=== PATIENT | male | born 1990 | race Caucasian/White ===

== ENCOUNTER 2016-12-08 14:14 | Inpatient (IN) | payer OTHER ==
[~2016-12-08] VITALS: Ht 175.3 cm; Wt 80.3 kg
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
--- NOTE | ~2016-12-08 | PN ---
Unit #: [id number] #: [id number] Patient: CONRAD GERARD [id number] [facility] [address] [place] [address] [id number] I MR#: [id number] NAME: CONRAD GERARD ROOM: P211 Age: 26 Sex: M Admission Date: 12/08/2016 : 1990 Attending Physician: Costa Chery M.D. Admitting Physician: Costa Chery M.D. Primary Care Physician: [facility] SPANGLER NOTES DATE OF SERVICE: 12/11/2016 SUBJECTIVE Mr. Gerard is a 26-year-old white male, who was seen today and chart was reviewed and case was discussed with the staff. He has been anxious, withdrawn, and rather seclusive to himself and has not been voicing much concerns neither has been able to carry on much conversation. However, he has been taking medications and tolerating them fairly well with no reported side effects. MENTAL STATUS EXAMINATION Young white male who was casually dressed with fair personal hygiene, appears to be in no acute distress or discomfort. He was awake and alert on interaction with intact orientation. His mood was anxious with a congruent affect. He denies any suicidal or homicidal ideation. His insight and judgment remain slightly impaired. TREATMENT PLAN 1. We will continue on his current medications and treatment protocol. We will monitor his response to medications and make further adjustments as needed. 2. We will continue to follow up. Dictated by... Matt Grewal/cem TD: 12/13/2016 03:31 JOB #: [id number] [facility] PROGRESS NOTES Page 1 of 1 X Costa Chery MD X PROGRESS NOTE
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
--- NOTE | ~2016-12-08 | PN ---
Unit #: [id number] #: [id number] Patient: CONRAD GERARD [id number] [facility] [address] [place] [address] [id number] I MR#: [id number] NAME: CONRAD GERARD ROOM: P211 Age: 26 Sex: M Admission Date: 12/08/2016 : 1990 Attending Physician: Costa Chery M.D. Admitting Physician: Costa Chery M.D. Primary Care Physician: [facility] Brionna SPANGLER NOTES DATE OF SERVICE: 12/10/2016 SUBJECTIVE Mr. Gerard is a 26-year-old white male, who was seen today and chart was reviewed, and case was discussed with the staff. He has been anxious, withdrawn, and rather seclusive to himself, though has not shown any agitation or aggression and has been cooperative with treatment recommendation and has been taking the medications and tolerating them fairly well. MENTAL STATUS EXAMINATION Young white male who was causally dressed with fair personal hygiene, appears to be in no acute distress or discomfort. He was awake and alert with intact orientation. His mood was anxious with a congruent affect. He denies any suicidal or homicidal ideations. His insight and judgment remain slightly impaired. TREATMENT PLAN 1. We will continue him on his current treatment protocol. We will monitor his response to the medication and make further adjustments as needed. 2. We will continue to follow up. Dictated by... Matt Grewal/hieul TD: 12/12/2016 05:22 JOB #: [id number] [facility] PROGRESS NOTES Page 1 of 1 X Costa Chery MD PROGRESS NOTE
--- NOTE | ~2016-12-08 | DS ---
Unit #: [id number] #: [id number] [facility]: [facility] [id number] [facility] [address] [place] [address] [id number] I MR#: [id number] NAME: CONRAD MON ROOM: [facility] Age: 26 Sex: M Admission Date: 12/08/2016 : 1990 Discharge Date: 12/12/2016 Attending Physician: Costa Chery M.D. Primary Care Physician: [facility] DISCHARGE SUMMARY IDENTIFYING DATA Mr. Mon is a 26-year-old single white male, who is a resident of [place], [place], and was brought to the hospital accompanied by police. DISCHARGE DIAGNOSES Psychiatric: Bipolar disorder, most recent episode depressed, recurrent, moderate, with psychosis and psychostimulant dependence, moderate. Medical: None. Stressors: Mild psychosocial stressors. HISTORY OF PRESENT ILLNESS Please see initial psychiatric evaluation for details. PAST PSYCHIATRIC HISTORY Please see initial psychiatric evaluation for details. PAST MEDICAL HISTORY Please see initial psychiatric evaluation for details. HOSPITAL COURSE The [facility] and was oriented to the hospital environment. Routine p.r.n. medications were initiated, and he was started on his home medications and medications were adjusted and Risperdal was started as a mood stabilizer and antipsychotic and he was closely monitored. He was initially seen to be anxious, withdrawn, and rather seclusive to himself, though was polite and pleasant. No agitation or aggression was noted. He was taking the medications regularly and was tolerating them fairly well and was able to show a decent and therapeutic response, and as such, it was decided that he will be discharged home and will continue treatment on an outpatient basis. DISCHARGE MEDICATIONS Risperdal 1 mg b.i.d. for psychosis. DISCHARGE CONDITION Stable. PROGNOSIS Fair. Dictated by... Unit #: [id number] #: [id number] Patient: CONRAD MON Costa Chery M.D. IAA/modl TD: 12/12/2016 19:44 JOB #: [id number] DISCHARGE SUMMARY Page 1 of 1 X Costa Chery MD DISCHARGE SUMMARY
[~2016-12-08 14:14] MED LIST: BACTRIM DS TABL1 TA1 PO; CIPRO PO; CIPRO XR 500 M500 MG PO; EC-NAPROSYN500 MG PO; FLEXERIL10 MG PO; HYDROCODON-ACE1 EAC5 PO; KEFLEX500 MG; KEFLEX500 MG PO; VOLTAREN75 MG PO
[2016-12-09 13:18] LABS: BASOPHIL% 0.3 % (0-2.5); EOSINOPHIL# 0.1 X10e3 (0-0.7); EOSINOPHIL% 1.2 % (0.0-7.0); HEMOGLOBIN 13.4 gm/dL (13.0-16.0); LYMPHOCYTE% 26.4 % (17.0-45.0); MEAN CELL VOLUME 88.8 FL (83-96); MEAN CORPUSCULAR HEMOGLOBIN 30.5 PG (28-34); MEAN CORPUSCULAR HGB CONC 34.3 g/dL (30-36); MEAN PLATELET VOLUME 10.2 FL (6.5-11.5); MONOCYTE# 0.6 X10e3 (0-1.0); MONOCYTE% 7.2 % (3.0-12.0); NEUTROPHIL% 64.9 % (40-75); PLATELET COUNT 207 X10e3 (140-420); RED BLOOD COUNT 4.39 X10e (3.90-5.60); RED CELL DISTRIBUTION WIDTH 14.5 % (11.0-15.5); WHITE BLOOD COUNT 7.8 X10e3 (4.0-10.5)
[2016-12-09 13:35] LABS: ALBUMIN SERUM 3.8 g/dL (3.5-5.0); BILIRUBIN,TOTAL 0.5 mg/dL (0.2-2.0); CALCIUM SERUM 9.4 mg/dL (8.4-10.2); CREATININE SERUM 0.6 mg/dL (0.6-1.4); GLOM FILT RATE Estimated 139.8 mL/min (>60); POTASSIUM 4.3 mmol/L (3.5-5.1); PROTEIN TOTAL SERUM 6.5 g/dL (6.0-8.3)
[2016-12-09 13:56] LABS: DIFF IND NO
[2016-12-11 10:28] LABS: URINE APPEARANCE CLEAR; URINE BILIRUBIN NEG (NEG); URINE BLOOD NEG (NEG); URINE COLOR YELLOW; URINE GLUCOSE NEG (NEG); URINE KETONE NEG (NEG); URINE LEUKOCYTE ESTERASE 2+ (NEG); URINE NITRATE NEG (NEG); URINE PROTEIN TRACE (NEG); URINE SPECIFIC GRAVITY 1.017 (1.003-1.035); URINE UROBILINOGEN 0.2 MG/DL (NEG)
[2016-12-11 10:35] LABS: URBCS1 AUWI 0-2 /[HPF] (0-2); URINE BACTERIA AUWI NEG (NEGATIVE); URINE SQUAMOUS EPITHELIAL CELL OCC /[HPF]
[2016-12-11 11:07] LABS: URINE MUCUS PRESENT
[2016-12-11 11:08] LABS: UWBCS1 AUWI 25-50 (0-5)
[2016-12-11 11:09] LABS: URINE SPERM PRESENT
[2016-12-11 11:12] LABS: AMPHETAMINE NEG (NEG); BARBITURATES NEG (NEG); BENZODIAZEPINES NEG (NEG); COCAINE NEG (NEG); MARIJUANA NEG (NEG); OPIATES NEG (NEG); TRICYCLIC ANTIDEPRESSANTS NEG (NEG); U METHADONE NEG (NEG)
== END 2016-12-12 10:25 | DRG 885 ==
LOC: P2S 18:04
PROVIDERS: Psychiatry & Neurology Psychiatry
DX: F33.1 Major depressive disorder, recurrent, moderate (principal); F11.20 Opioid dependence, uncomplicated; F15.20 Other stimulant dependence, uncomplicated; J45.909 Unspecified asthma, uncomplicated; F10.10 Alcohol abuse, uncomplicated
CPT/HCPCS: 80053; 80307; 81003; 85025; 87070; 87075; 87077; 87186; 87205

== ENCOUNTER 2016-12-12 19:38 | Inpatient (IN) | payer OTHER ==
[~2016-12-12] VITALS: Ht 177.8 cm; Wt 80.3 kg
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
--- NOTE | ~2016-12-12 | DS ---
Unit #: [id number] #: [id number] Patient: CONRAD MON [id number] [facility] [place] [address] [id number] I MR#: [id number] NAME: CONRAD MON ROOM: [facility] Age: 26 Sex: M Admission Date: 12/13/2016 : 1990 Discharge Date: 12/14/2016 Attending Physician: Costa Chery M.D. Primary Care Physician: [facility] DISCHARGE SUMMARY IDENTIFYING DATA Mr. Mon is a 26-year-old single white male, who was just discharged from my care and was self-referred back to the hospital. DISCHARGE DIAGNOSES Psychiatric: Major depressive disorder, recurrent, moderate, without psychotic features; opioid dependence, moderate; methamphetamine dependence, moderate; and alcohol abuse, moderate. Medical: Asthma. Stressors: Mild psychosocial stressors. HISTORY OF PRESENT ILLNESS Please see initial psychiatric evaluation for details. PAST PSYCHIATRIC HISTORY Please see initial psychiatric evaluation for details. PAST MEDICAL HISTORY Please see initial psychiatric evaluation for details. HOSPITAL COURSE The patient was admitted to the adult psychiatric unit at [facility] and was oriented to the hospital environment. Routine p.r.n. medications were initiated, and he was started back on his home medications. However, medications were adjusted and Risperdal was increased to 1 mg in the morning and 2 mg at bedtime as part of his bipolar, and Celexa as an antidepressant was also added. He was taking the medications regularly and was tolerating them fairly well and was denying any further suicidal ideations, intent, or plan, and as such, it was decided that he will be discharged home and will continue treatment on an outpatient basis. DISCHARGE MEDICATIONS Risperdal 1 mg in the morning and 2 mg at bedtime. DISCHARGE CONDITION Stable. PROGNOSIS Fair. Dictated by... Costa Chery M.D. Unit #: [id number] #: [id number] Patient: CONRAD MON IAA/modl TD: 12/14/2016 12:38 JOB #: [id number] DISCHARGE SUMMARY Page 1 of 1 X Costa Chery MD X DISCHARGE SUMMARY
--- NOTE | ~2016-12-12 | HP ---
Unit #: [id number] #: [id number] Patient: CONRAD GERARD [id number] [facility] [address] [place] [address] [id number] MR#: [id number] NAME: CONRAD GERARD ROOM: P203 Age: 26 Sex: M Admission Date: 12/13/2016 : 1990 Attending Physician: Costa Chery M.D. Admitting Physician: Costa Chery M.D. Primary Care Physician: [facility] [place] HISTORY AND PHYSICAL HISTORY OF PRESENT ILLNESS Conrad is a 26 year old admitted to [address] [place] [address] with depression verbalizing wanting to hurt himself. 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 He denies any currently. PAST SURGICAL HISTORY Left eye. ALLERGIES No known drug allergies. SOCIAL HISTORY Smokes one-half pack per day. Denies alcohol. Has a history of illicit substance abuse to include IV heroin. He denies anything currently. FAMILY HISTORY Medically noncontributory. REVIEW OF SYSTEMS CONSTITUTIONAL: No fever or chills. HEENT: Denies any sore throat, ear pain or runny nose. CARDIOVASCULAR: Denies chest pain, irregular heart rhythm or palpitations. CHEST: Denies shortness of breath or cough. No hemoptysis. GASTROINTESTINAL: Denies nausea, vomiting, diarrhea or chronic constipation. ENDOCRINE: Denies history of increased thirst or urination. No recent significant weight loss or gain. GENITOURINARY: Denies dysuria, frequency, or hematuria. SKIN: Denies any rashes. He does report an abscess along his right heel. HEMATOLOGIC: Denies history of increased bleeding or bruising. MUSCULOSKELETAL: Denies any hot, swollen joints. No generalized muscle pain. NEUROLOGIC: Denies problems with vision or speech. No frequent, severe headaches. No numbness, tingling or weakness in any extremities. Denies loss of bladder or bowel control. CURRENT MEDICATIONS 1. Risperdal 1 mg q.a.m., 2 mg q.h.s. Unit #: [id number] #: [id number] Patient: CONRAD GERARD 2. Celexa 20 mg q day 3. Milk of Magnesia p.r.n. 4. Maalox p.r.n. 5. Tylenol p.r.n. PHYSICAL EXAMINATION GENERAL: Alert, well-nourished, in no apparent distress. VITAL SIGNS: Blood pressure 144/88, heart rate 80, respirations 16, temperature 98.6. WEIGHT: 177. HEIGHT: 5 foot 10 inches. SKIN: Warm and dry without rash. He has a large partially healed area along his right heel. There is small amounts of purulent discharge noted. HEENT: Normocephalic. TMs not viewed. Oral and nasal passages clear. Conjunctivae clear. Pupils equal, round and reactive to light and accommodation. Extraocular movements intact. NECK: Supple without lymphadenopathy or thyromegaly. HEART: Regular rate and rhythm without murmur. LUNGS: Clear. ABDOMEN: Soft, nontender. : Not done. EXTREMITIES: No evidence of cyanosis, clubbing or edema. Moves all extremities without focal deficit. NEUROLOGICAL: Grossly within normal limits. Cranial Nerves: II: Visual lopez are intact. III, IV AND : Extraocular movements are intact. Pupils are equal, round and reactive to light. V: Facial sensation is grossly normal. VII: Facial movements and expression are normal. VIII: Auditory acuity grossly intact. IX, X: Uvula is midline. Phonation is normal. XI: Patient shrugs shoulders and turns head normally. XII: Tongue protrudes in the midline. Sensory and Motor Function: Sensory and motor sensation is grossly normal. Motor: moves all extremities well. Coordination: Gait is normal. Deep Tendon Reflexes: Intact. IMPRESSION 1. Psychiatric admission. 2. Abscess right heel. 3. Liver enzymes elevated his admission. RECOMMENDATIONS PSYCHIATRIC: Per psychiatrist. MEDICAL: 1. I see no contraindications to participating in facility's activities. 2. Screen for hepatitis C. 3. Start Cleocin 300 mg 1 p.o. t.i.d. times 7 days. MEDICAL PROGNOSIS Good. MEDICAL CONDITION Stable. Unit #: [id number] #: [id number] Patient: CONRAD GERARD Dictated by... Latisha Hadley P.A.-C. for Matt Hoover/teri TD: 12/14/2016 05:27 JOB #: [id number] HISTORY AND PHYSICAL Page 1 of 1 X Latisha Hadley HISTORY AND PHYSICAL
[2016-12-19 08:02] LABS: HA AB IGM (HEPPAN) Nonreactive (()); HB CORE AB IGM (HEPPAN) Nonreactive (Nonreactive); HB S AG (HEPPAN) Nonreactive (Nonreactive); HEP C AB (HEPPAN) Reactive (Nonreactive)
== END 2016-12-14 09:58 | DRG 885 ==
LOC: P2S 12-13 00:07
PROVIDERS: Psychiatry & Neurology Psychiatry
DX: F31.32 Bipolar disorder, current episode depressed, moderate (principal); R45.851 Suicidal ideations; F11.10 Opioid abuse, uncomplicated; F15.10 Other stimulant abuse, uncomplicated; F17.200 Nicotine dependence, unspecified, uncomplicated; F10.20 Alcohol dependence, uncomplicated; J45.909 Unspecified asthma, uncomplicated
CPT/HCPCS: 80074; 87522; 90688